=== PATIENT | female | born 1990 | race Caucasian/White ===

== ENCOUNTER 2021-09-12 18:52 | Observation (INO) ==
--- NOTE | 2021-09-12 19:42 | History & Physical Report ---
Date of Service September 12, 2021 Assessment & Plan (1) Uterine contractions at greater than 20 weeks of gestation: Plan: Contractions with pain, but at this point no cervical change from this morning. Seems that there was a notable change in the intensity and frequency of contractions in the last hour or so. Offered re-assessment in 1-2 hours, patient agreeable. History of Present Illness Chief Complaint: contractions Primary Care Provider: Briseida Fan PA-C 31yo at 40w0d presented with contractions. They began earlier today and the patient was examined in office, found to be 2/75/-2 at that time by Dr. Miller. She went home and ambulated through the day. Contractions progressed from 10 min apart, to 5 min apart, to 3 min apart at which point she decided to present to L&D for a labor check. No ROM, no VB, good FM. c/b A1GDM and maternal depression. Allergies Allergy/AdvReac Type Severity Reaction Status Date / Time No Known Allergies Allergy Verified 09/12/21 09:18 Home Medications Medication Instructions Recorded Confirmed Type prenat.vits,alexandr,mji-ttdt-valve 1 tab PO DAILY 02/08/21 09/12/21 History acetone (urine) test (Ketone Urine #50 ea 07/01/21 09/12/21 Rx Test) blood sugar diagnostic (Accu-Chek #400 ea 07/01/21 09/12/21 Rx Guide test strips) lancets (Accu-Chek Softclix #400 ea 07/01/21 09/12/21 Rx Lancets) Patient History Family History Mother Heart disease Hypertension Grandmother (Maternal) Colorectal cancer Other Breast cancer Cancer Social History Smoking Status: Never smoker Hx Alcohol Use: No Hx Substance Use: No marital status: marital status details: Shiraz (30) [phone] Current Living Situation: Spouse Current Living Situation Comment: lives with spouse and dog, current occupational status: employed 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 Feels Safe at Home: Yes Physical Exam Constitutional: WD/WN, vitals as above + in distress Eyes: PERRL, conjunctivae normal, anicteric sclerae ENMT: external ear and nose normal, oropharynx normal Neck: supple Respiratory: normal respiratory effort and able to speak in complete sentences; no respiratory distress Cardiovascular: Rate/Rhythm: regular rate and regular rhythm Extremities: + pedal edema Gastrointestinal (Abdomen): Gravid / AGA, nontender Musculoskeletal: no cyanosis or clubbing, extremities motor strength 5/5 Skin: no rashes, warm and dry Neurologic: patellar DTR's 2+ bilat, sensation intact Psychiatric: A+Ox3, euthymic affect Genitourinary: Speculum/Bimanual Exam: no vaginal lesions, no vaginal bleeding and uterus nontender OB Exam Abdomen: + vertex, + estimated weight (7) and + regular contractions (Q3) Manual OB Exam: + cervical dilation 2 cm, + cervical effacement 80%, + station -2 and + amniotic fluid (No leaking evident) OB Exam Monitor Tracing: + external FHT monitor used, + external uterine monitor used (toco Q2-3) and + category I Lymphatic: no cervical or axillary lymphadenopathy Results & Data ([facility]) Vital Signs (Past 12 Hours) Vital Signs Temp Pulse Resp BP 09/12/21 19:06 98.1 F 20 09/12/21 19:01 102 H 126/74 Coding Level of Care Code None Diagnoses Uterine contractions at greater than 20 weeks of gestation O47.9
--- NOTE | 2021-09-12 20:44 | Labor Progress Brief Note ---
Date of Service September 12, 2021 Subjective Patient still c/o contractions, no LOF, no VB, good FM. Assessment & Plan (1) Uterine contractions at greater than 20 weeks of gestation: Plan: Discussed lack of change indicates no labor yet. Offered another interval of obs vs. discharge to home; pt lives very close to hospital, feels comfortable going home for now. Labor precautions reviewed. Comfort measures discussed. Hydration encouraged, ketones present on urine dip may be contributing to nonlabor uterine contractions. FHT currently not reactive since she got back on the monitor a short time ago, so awaiting reactive NST before clearing for discharge to home. Physical Exam Genitourinary: FHT 130 mod kamlesh no acc no dec [place] Q2-5 Cvx unchanged Results & Data ([facility]) Vital Signs (Past 12 Hours) Vital Signs Temp Pulse Resp BP 09/12/21 19:06 98.1 F 20 09/12/21 19:01 102 H 126/74 Coding Level of Care Code None Diagnoses Uterine contractions at greater than 20 weeks of gestation O47.9
== END 2021-09-12 21:15 | disposition home or self-care (01) ==
LOC: OPB 18:52 → 4S1 18:52 → OPB 21:04

== ENCOUNTER 2021-09-13 01:57 | Inpatient (IN) ==
[2021-09-13] MEDS ORDERED: OXYTOCIN 30 UNITS/500 ML BAG IV PRN ×3 (02:09→15:45)
[2021-09-13] MEDS: LACTATED RINGER'S 1,000 ML IV PRN ×3 (02:38→11:11)
[2021-09-13 02:51] LABS: Hematocrit (blood only) 32.5 % (37-47); Hemoglobin 10.9 g/dL (12.0-16.0); Mean Corpuscular Hemoglobin 29.5 pg (25-34); Mean Corpuscular Hgb Conc 33.5 g/dL (32-36); Mean Corpuscular Volume 87.8 fL (80-100); Platelet Count 202 K/uL (130-400); White Blood Count 13.04 K/uL (4.8-10.8)
[2021-09-13] MEDS ORDERED: ePHEDrine sulfate 50 MG/ML AMP ONE ×2 (02:58→10:06)
[2021-09-13] MEDS ORDERED: SODIUM CHLORIDE 0.9% INJ 10 ML VIAL ONE ×2 (02:58→10:06)
[2021-09-13] MEDS ORDERED: BUPIVACAINE 0.25% 30 ML VIAL ONE ×2 (02:58→10:07)
[2021-09-13] MEDS ORDERED: fentaNYL citrate 100 MCG/2 ML VIAL ONE ×2 (02:58→10:06)
[2021-09-13] MEDS ORDERED: fentaNYL 2MCG/ML ROPIVACAINE 1.25MG/ML 100 ML BAG EPI ONE ×2 (02:59→10:07)
[2021-09-13] MEDS ORDERED: NALBUPHINE HCL INJ 10 MG/ML AMP IV PRN ×2 (03:14→08:07)
[2021-09-13] MEDS ORDERED: ePHEDrine sulfate 50 MG/ML AMP IV PRN ×2 (03:14→08:07)
[2021-09-13] MEDS ORDERED: NALOXONE HCL 0.4 MG/1 ML VIAL/CARP IV PRN ×2 (03:14→08:07)
[2021-09-13] MEDS ORDERED: diphenhydrAMINE 50 MG/ML VIAL IV PRN ×2 (03:14→08:07)
[2021-09-13] MEDS ORDERED: NALOXONE HCL 1 MG in SODIUM CHLORIDE 0.9% 1000ML 1,000 ML IV PRN ×2 (03:14→08:07)
[2021-09-13] MEDS ORDERED: fentaNYL 2MCG/ML ROPIVACAINE 1.25MG/ML 100 ML BAG EPI PRN (03:14)
--- NOTE | 2021-09-13 03:14 | Anesthesiology Consultation ---
Date of Service September 13, 2021 Assessment & Plan (1) Encounter for pre-operative examination: Chart Review Chart Review: Acceptable Risk for Surgery and Patient NOT seen in Pre Admission Testing Consults Requested none History Height/Weight Height: 5 ft 9 in Weight: 109.316 kg Allergies Allergy/AdvReac Type Severity Reaction Status Date / Time No Known Allergies Allergy Verified 09/12/21 09:18 Medications Home Medications Medication Instructions Recorded Confirmed Last Taken prenat.vits,alexandr,uhq-esfz-vzbrd 1 tab PO DAILY 02/08/21 09/13/21 09/12/21 0800 acetone (urine) test (Ketone Urine #50 ea 07/01/21 09/12/21 Unknown Test) blood sugar diagnostic (Accu-Chek #400 07/01/21 09/12/21 Unknown Guide test strips) lancets (Accu-Chek Softclix #400 07/01/21 09/12/21 Unknown Lancets) Active Medications Generic Name Dose Route Start Last Admin Trade Name Freq PRN Reason Stop Dose Admin Lactated Ringer's 1,000 mls @ 125 mls/hr 09/13/21 02:09 09/13/21 02:38 Lr IV 09/15/21 02:08 999 mls/hr .Q8H PRN Administration L&D Protocol Protocol Past Family History Family History Mother Heart disease Hypertension Grandmother (Maternal) Colorectal cancer Other Breast cancer Cancer Social History Smoking Status: Never smoker Hx Alcohol Use: No Hx Substance Use: No Physical Exam Vital Signs Last Vital Signs Temp 98.4 F 09/13/21 02:14 Pulse 80 09/13/21 03:08 Resp 20 09/13/21 02:14 BP 136/82 09/13/21 02:03 Pulse Ox 93 09/13/21 03:08 Testing Laboratory Results 09/13/21 02:42
--- NOTE | 2021-09-13 06:20 | Labor Progress Brief Note ---
Date of Service September 13, 2021 Subjective Patient returned overnight with worsened contractions and scant bloody show. Checked by RN and confirmed change to 4cm, so was admitted and offered epidural. After comfortable, re-examined by this MD. Now able to rest, feels much better. One spot on L side of upper abdomen with constant pressure, not feeling contractions come and go there; maybe feeling a part pressing towards fundus? Asked patient to notify us if this doesn't go away with change of position and AROM after this exam. RN does inform me that upon placement of the epidural, Dr. Medina mentioned that he was concerned for possible intrathecal medication because of the rapidity with which the patient felt relief. The patient was not given an on- demand BR[place]OMC[place] SORTER button and the base rate of epidural flow is set to 4. If patient develops a "hot spot" or poor pain control, will notify anesthesia promptly. Assessment & Plan (1) Normal labor: Plan: Admitted, epidural, AROM now accomplished, and discussed adding pitocin if needed to keep ctx Q2-3min; pt agreeable. Admission and Anticipated Discharge Date Admission Date: September 13, 2021 Physical Exam Genitourinary: 5/100/-1 AROM clear fluid FHT Cat 1 [place] Q2-4 Results & Data ([facility]) Vital Signs (Past 12 Hours) Vital Signs Temp Pulse Resp BP Pulse Ox 09/13/21 06:13 87 91 09/13/21 06:08 99 H 91 09/13/21 06:07 99 H 120/70 09/13/21 06:03 103 H 90 09/13/21 06:01 98.1 F 18 09/13/21 05:58 94 H 92 09/13/21 05:56 97 H 93 09/13/21 05:53 84 142/75 H 91 09/13/21 05:50 96 H 93 09/13/21 05:48 90 91 09/13/21 05:43 91 H 92 09/13/21 05:38 101 H 92 09/13/21 05:37 93 H 147/80 H 09/13/21 05:33 103 H 92 09/13/21 05:28 94 H 90 09/13/21 05:23 101 H 92 09/13/21 05:22 104 H 139/73 09/13/21 05:18 82 89 L 09/13/21 05:13 101 H 90 09/13/21 05:08 86 90 09/13/21 05:07 83 143/72 H 09/13/21 05:03 92 H 90 09/13/21 05:00 16 09/13/21 04:58 93 H 90 09/13/21 04:53 84 136/75 91 09/13/21 04:48 83 91 09/13/21 04:43 84 92 09/13/21 04:38 78 139/74 92 09/13/21 04:33 74 92 09/13/21 04:30 16 09/13/21 04:28 75 92 09/13/21 04:23 78 93 09/13/21 04:22 76 137/72 09/13/21 04:18 76 91 09/13/21 04:13 83 95 09/13/21 04:08 92 H 95 09/13/21 04:07 87 135/60 09/13/21 04:05 81 94 09/13/21 04:03 83 94 09/13/21 04:00 18 09/13/21 03:59 76 94 09/13/21 03:58 82 95 09/13/21 03:55 88 135/75 09/13/21 03:54 18 09/13/21 03:53 85 95 09/13/21 03:51 84 94 09/13/21 03:50 91 H 18 131/69 09/13/21 03:48 82 126/66 92 09/13/21 03:46 91 H 132/67 09/13/21 03:45 18 09/13/21 03:44 83 129/67 09/13/21 03:43 86 93 09/13/21 03:42 97 H 128/67 09/13/21 03:40 89 18 133/65 09/13/21 03:38 93 H 132/62 91 09/13/21 03:36 88 140/67 09/13/21 03:34 97 H 168/74 H 09/13/21 03:33 90 93 09/13/21 03:28 89 95 09/13/21 03:27 97 H 94 09/13/21 03:23 93 H 96 09/13/21 03:20 20 09/13/21 03:18 100 H 97 09/13/21 03:16 72 94 09/13/21 03:13 76 95 05/13/22 03:08 80 93 09/13/21 02:14 98.4 F 20 09/13/21 02:03 80 136/82 Coding Level of Care Code None Diagnoses Normal labor O80; Z37.9
[2021-09-13] MEDS ORDERED: NURSING L&D Epidural Breakthrough Pain Update ONE (08:04)
--- NOTE | 2021-09-13 08:13 | Communication Note ---
Date of Service: September 13, 2021 The patient was complaining of pain in her left flank. Dr. Medina communicated with me that the patient may have an intrathecal catheter. She is currently at a rate of 4 ml/hr in her catheter. She was evaluated to ice. T12 level on right. T10 level on left. She was given a bolus of 4 ml from the premixed bag about 10 minutes ago. Her catheter infusion rate was increased to 6 ml/hr with no bolus. Her vitals remain stable. She is now feeling better. She is easily moving both legs. Her vital signs remain stable.
--- NOTE | 2021-09-13 09:15 | Labor Progress Brief Note ---
Date of Service September 13, 2021 Subjective Feeling some pressure and pain w/ contractions Assessment & Plan (1) Normal labor: Plan: 31 y/o G1 at 40 w1d presents in labor VSS Fetus cat 1 Labor - pit at 7, will continue augmentation GBS neg Epidural in place, intrathecal per anesthesia Admission and Anticipated Discharge Date Admission Date: September 13, 2021 Physical Exam Genitourinary: Manual OB Exam: + cervical dilation 5 cm, + cervical effacement 90% and + station -1 OB Exam Monitor Tracing: + external FHT monitor used, + external uterine monitor used (q3) and + category I (120/mod/+accel/-decel) Results & Data ([facility]) Vital Signs (Past 12 Hours) Vital Signs Temp Pulse Resp BP Pulse Ox 09/13/21 09:08 96 H 89 L 09/13/21 09:05 107 H 113/59 L 09/13/21 09:04 98 H 94 09/13/21 09:03 98 H 95 09/13/21 08:58 94 H 95 09/13/21 08:53 94 H 98 09/13/21 08:52 81 94 09/13/21 08:50 95 H 116/63 09/13/21 08:48 82 96 09/13/21 08:46 82 94 09/13/21 08:43 81 93 09/13/21 08:38 88 93 09/13/21 08:36 86 122/57 L 09/13/21 08:33 83 93 09/13/21 08:32 84 94 09/13/21 08:28 97 H 92 09/13/21 08:23 107 H 95 09/13/21 08:20 98.1 F 100 H 16 135/71 09/13/21 08:18 95 H 93 09/13/21 08:17 92 H 94 09/13/21 08:14 104 H 127/68 09/13/21 08:13 103 H 94 09/13/21 08:12 95 H 94 09/13/21 08:10 95 H 134/69 09/13/21 08:08 97 H 93 09/13/21 08:07 89 135/70 09/13/21 08:03 100 H 93 09/13/21 08:02 113 H 94 09/13/21 07:59 105 H 18 143/73 H 09/13/21 07:58 104 H 93 09/13/21 07:54 91 H 94 09/13/21 07:53 96 H 90 09/13/21 07:49 94 H 93 09/13/21 07:48 91 H 94 09/13/21 07:43 89 92 09/13/21 07:38 100 H 91 09/13/21 07:37 89 131/88 09/13/21 07:33 99 H 91 09/13/21 07:28 96 H 90 09/13/21 07:23 87 91 09/13/21 07:22 93 H 151/82 H 09/13/21 07:21 90 92 09/13/21 07:18 91 H 91 09/13/21 07:15 99.1 F 18 09/13/21 07:13 89 91 09/13/21 07:08 96 H 91 09/13/21 07:07 100 H 135/78 09/13/21 07:03 101 H 92 09/13/21 06:58 96 H 90 09/13/21 06:53 88 138/80 90 09/13/21 06:48 86 90 09/13/21 06:43 86 90 09/13/21 06:38 86 92 09/13/21 06:37 82 148/71 H 09/13/21 06:33 90 91 09/13/21 06:28 93 H 90 09/13/21 06:23 94 H 91 09/13/21 06:18 87 92 09/13/21 06:13 87 91 09/13/21 06:08 99 H 91 09/13/21 06:07 99 H 120/70 09/13/21 06:03 103 H 90 09/13/21 06:01 98.1 F 18 09/13/21 05:58 94 H 92 09/13/21 05:56 97 H 93 09/13/21 05:53 84 142/75 H 91 09/13/21 05:50 96 H 93 09/13/21 05:48 90 91 09/13/21 05:43 91 H 92 09/13/21 05:38 101 H 92 09/13/21 05:37 93 H 147/80 H 09/13/21 05:33 103 H 92 09/13/21 05:28 94 H 90 09/13/21 05:23 101 H 92 09/13/21 05:22 104 H 139/73 09/13/21 05:18 82 89 L 09/13/21 05:13 101 H 90 09/13/21 05:08 86 90 09/13/21 05:07 83 143/72 H 09/13/21 05:03 92 H 90 09/13/21 05:00 16 09/13/21 04:58 93 H 90 09/13/21 04:53 84 136/75 91 09/13/21 04:48 83 91 09/13/21 04:43 84 92 09/13/21 04:38 78 139/74 92 09/13/21 04:33 74 92 09/13/21 04:30 16 09/13/21 04:28 75 92 09/13/21 04:23 78 93 09/13/21 04:22 76 137/72 09/13/21 04:18 76 91 09/13/21 04:13 83 95 09/13/21 04:08 92 H 95 09/13/21 04:07 87 135/60 09/13/21 04:05 81 94 09/13/21 04:03 83 94 09/13/21 04:00 18 09/13/21 03:59 76 94 09/13/21 03:58 82 95 09/13/21 03:55 88 135/75 09/13/21 03:54 18 09/13/21 03:53 85 95 09/13/21 03:51 84 94 09/13/21 03:50 91 H 18 131/69 09/13/21 03:48 82 126/66 92 09/13/21 03:46 91 H 132/67 09/13/21 03:45 18 09/13/21 03:44 83 129/67 09/13/21 03:43 86 93 09/13/21 03:42 97 H 128/67 09/13/21 03:40 89 18 133/65 09/13/21 03:38 93 H 132/62 91 05 03:36 88 140/67 09/13/21 03:34 97 H 168/74 H 09/13/21 03:33 90 93 09/13/21 03:28 89 95 09/13/21 03:27 97 H 94 09/13/21 03:23 93 H 96 09/13/21 03:20 20 09/13/21 03:18 100 H 97 09/13/21 03:16 72 94 09/13/21 03:13 76 95 09/13/21 03:08 80 93 09/13/21 02:14 98.4 F 20 09/13/21 02:03 80 136/82 Coding Level of Care Code None Diagnoses Normal labor O80; Z37.9
--- NOTE | 2021-09-13 11:00 | Labor Progress Brief Note ---
Date of Service September 13, 2021 Subjective pt comfortable. Assessment & Plan (1) Normal labor: (2) Gestational diabetes mellitus (GDM) affecting , antepartum: (3) Supervision of normal intrauterine in primigravida: Plan: pt aware i am assuming care. comfortable right now. fhts categ 1. Admission and Anticipated Discharge Date Admission Date: September 13, 2021 Physical Exam Genitourinary: Manual OB Exam: + cervical dilation 5 cm (per dr mera) OB Exam Monitor Tracing: + external FHT monitor used, + external uterine monitor used (q2), + category I and + normal FHT variability Results & Data ([facility]) Vital Signs (Past 12 Hours) Vital Signs Temp Pulse Resp BP Pulse Ox 09/13/21 10:54 95 H 92 09/13/21 10:50 98 H 127/62 09/13/21 10:49 111 H 96 09/13/21 10:47 100 H 127/65 09/13/21 10:44 95 H 96 09/13/21 10:43 106 H 94 09/13/21 10:39 95 H 95 09/13/21 10:38 95 H 94 09/13/21 10:37 96 H 127/65 09/13/21 10:34 105 H 95 09/13/21 10:33 125 H 158/83 H 09/13/21 10:29 95 H 95 09/13/21 10:27 114 H 94 09/13/21 10:24 113 H 96 09/13/21 10:22 113 H 94 09/13/21 10:20 111 H 120/69 09/13/21 10:19 110 H 96 09/13/21 10:14 100 H 94 09/13/21 10:11 101 H 94 09/13/21 10:09 96 H 96 09/13/21 10:06 96 H 131/84 09/13/21 10:05 107 H 94 09/13/21 10:04 104 H 95 09/13/21 09:59 97 H 95 09/13/21 09:58 100 H 94 09/13/21 09:54 97 H 97 09/13/21 09:53 98 H 94 09/13/21 09:52 94 H 154/81 H 09/13/21 09:50 92 H 136/107 H 09/13/21 09:49 90 95 09/13/21 09:48 90 89 L 09/13/21 09:44 95 H 94 09/13/21 09:42 102 H 94 09/13/21 09:38 91 H 96 09/13/21 09:37 97 H 92 09/13/21 09:36 84 133/78 09/13/21 09:33 85 95 09/13/21 09:32 83 94 09/13/21 09:28 96 H 96 09/13/21 09:23 99 H 93 09/13/21 09:21 94 H 139/76 09/13/21 09:18 91 H 96 09/13/21 09:17 98.2 F 18 09/13/21 09:13 114 H 94 09/13/21 09:08 96 H 89 L 09/13/21 09:05 107 H 113/59 L 09/13/21 09:04 98 H 94 09/13/21 09:03 98 H 95 09/13/21 08:58 94 H 95 09/13/21 08:53 94 H 98 09/13/21 08:52 81 94 09/13/21 08:50 95 H 116/63 09/13/21 08:48 82 96 09/13/21 08:46 82 94 09/13/21 08:43 81 93 09/13/21 08:38 88 93 09/13/21 08:36 86 122/57 L 09/13/21 08:33 83 93 09/13/21 08:32 84 94 09/13/21 08:28 97 H 92 09/13/21 08:23 107 H 95 09/13/21 08:20 98.1 F 100 H 16 135/71 09/13/21 08:18 95 H 93 09/13/21 08:17 92 H 94 09/13/21 08:14 104 H 127/68 09/13/21 08:13 103 H 94 09/13/21 08:12 95 H 94 09/13/21 08:10 95 H 134/69 09/13/21 08:08 97 H 93 09/13/21 08:07 89 135/70 09/13/21 08:03 100 H 93 09/13/21 08:02 113 H 94 09/13/21 07:59 105 H 18 143/73 H 09/13/21 07:58 104 H 93 05/13/22 07:54 91 H 94 09/13/21 07:53 96 H 90 09/13/21 07:49 94 H 93 09/13/21 07:48 91 H 94 09/13/21 07:43 89 92 09/13/21 07:38 100 H 91 09/13/21 07:37 89 131/88 09/13/21 07:33 99 H 91 09/13/21 07:28 96 H 90 09/13/21 07:23 87 91 09/13/21 07:22 93 H 151/82 H 09/13/21 07:21 90 92 09/13/21 07:18 91 H 91 09/13/21 07:15 99.1 F 18 09/13/21 07:13 89 91 09/13/21 07:08 96 H 91 09/13/21 07:07 100 H 135/78 09/13/21 07:03 101 H 92 09/13/21 06:58 96 H 90 09/13/21 06:53 88 138/80 90 09/13/21 06:48 86 90 09/13/21 06:43 86 90 09/13/21 06:38 86 92 09/13/21 06:37 82 148/71 H 09/13/21 06:33 90 91 09/13/21 06:28 93 H 90 09/13/21 06:23 94 H 91 09/13/21 06:18 87 92 09/13/21 06:13 87 91 09/13/21 06:08 99 H 91 09/13/21 06:07 99 H 120/70 09/13/21 06:03 103 H 90 09/13/21 06:01 98.1 F 18 09/13/21 05:58 94 H 92 09/13/21 05:56 97 H 93 09/13/21 05:53 84 142/75 H 91 09/13/21 05:50 96 H 93 09/13/21 05:48 90 91 09/13/21 05:43 91 H 92 09/13/21 05:38 101 H 92 09/13/21 05:37 93 H 147/80 H 09/13/21 05:33 103 H 92 09/13/21 05:28 94 H 90 09/13/21 05:23 101 H 92 09/13/21 05:22 104 H 139/73 09/13/21 05:18 82 89 L 09/13/21 05:13 101 H 90 09/13/21 05:08 86 90 09/13/21 05:07 83 143/72 H 09/13/21 05:03 92 H 90 09/13/21 05:00 16 09/13/21 04:58 93 H 90 09/13/21 04:53 84 136/75 91 09/13/21 04:48 83 91 09/13/21 04:43 84 92 09/13/21 04:38 78 139/74 92 09/13/21 04:33 74 92 09/13/21 04:30 16 09/13/21 04:28 75 92 09/13/21 04:23 78 93 09/13/21 04:22 76 137/72 09/13/21 04:18 76 91 09/13/21 04:13 83 95 09/13/21 04:08 92 H 95 09/13/21 04:07 87 135/60 09/13/21 04:05 81 94 09/13/21 04:03 83 94 09/13/21 04:00 18 09/13/21 03:59 76 94 09/13/21 03:58 82 95 09/13/21 03:55 88 135/75 09/13/21 03:54 18 09/13/21 03:53 85 95 09/13/21 03:51 84 94 09/13/21 03:50 91 H 18 131/69 09/13/21 03:48 82 126/66 92 09/13/21 03:46 91 H 132/67 09/13/21 03:45 18 09/13/21 03:44 83 129/67 09/13/21 03:43 86 93 09/13/21 03:42 97 H 128/67 09/13/21 03:40 89 18 133/65 09/13/21 03:38 93 H 132/62 91 05 03:36 88 140/67 09/13/21 03:34 97 H 168/74 H 09/13/21 03:33 90 93 09/13/21 03:28 89 95 09/13/21 03:27 97 H 94 09/13/21 03:23 93 H 96 09/13/21 03:20 20 09/13/21 03:18 100 H 97 09/13/21 03:16 72 94 09/13/21 03:13 76 95 09/13/21 03:08 80 93 09/13/21 02:14 98.4 F 20 09/13/21 02:03 80 136/82 Coding Level of Care Code None Diagnoses Normal labor O80; Z37.9 Gestational diabetes mellitus (GDM) affecting , antepartum O24.419 Supervision of normal intrauterine in primigravida Z34.00
--- NOTE | 2021-09-13 15:41 | Delivery Summary ---
Vaginal Delivery Summary Date of Service September 13, 2021 Vaginal Delivery Summary and 2nd Degree LAC The patient dilated to complete and pushed to deliver a viable male infant Apgars 8 and 9 via over 2nd degree perineal laceration. Mouth and nose bulb suctioned at perineum. Shoulders and body delivered with ease. Infant was vigorous and crying at . Cord clamped at 30 seconds of life and to maternal abdomen where the cord was then doubly clamped and cut. Placenta delivered spontaneously and intact, three-vessel cord. True knot of cord noted. Hemostasis achieved with dilute pitocin and uterine massage and drainage of the bladder for approximately 250 cc under sterile conditions. Laceration repaired in layers in usual fashion with 3-0 vicryl. Cervix and sulci intact. EBL 300 cc. Mother and baby stable recovery[place] [facility] [place] Charge Delivery Type Details: and 2nd Degree LAC
[2021-09-13] MEDS ORDERED: OXYTOCIN 20 UNITS in LACTATED RINGER'S 1,000 ML IV SCH (15:45)
[2021-09-13] MEDS ORDERED: DIPHTHERIA/TETANUS/PERTUSSIS 0.5 ML SYR/VIAL IM ONE (15:45)
[2021-09-13] MEDS ORDERED: BENZOCAINE 20% AER SPR 82.5 GM CAN EXT PRN (15:45)
[2021-09-13] MEDS ORDERED: HYDROCORTISONE ACETATE 25 MG SUPP PR PRN (15:45)
[2021-09-13] MEDS ORDERED: oxyCODONE/ACETAMINOPHEN 5mg/325mg TAB PO PRN (15:45)
[2021-09-13] MEDS: ACETAMINOPHEN 325 MG TAB PO PRN (15:59)
[2021-09-13] MEDS: IBUPROFEN 600 MG TAB PO PRN ×2 (16:29→21:05)
--- NOTE | 2021-09-13 17:39 | Anesthesia Procedure Note ---
Date of Service September 13, 2021 Anesthesia Post Epidural Note Vital Signs Vital Signs: Temp Pulse Resp BP Pulse Ox 36.7 C 88 20 133/73 94 09/13/21 14:05 09/13/21 17:06 09/13/21 16:45 09/13/21 17:06 09/13/21 16:53 Pain Intensity Perineal: Pain Intensity: 1 Notes Mental Status: alert / awake / arousable and participated in evaluation Nausea / Vomiting: adequately controlled Pain: adequately controlled Airway Patency, RR, SpO2: stable & adequate BP & HR: stable & adequate Hydration State: stable & adequate Neuraxial Anesthesia: was administered and sensory block is resolving Anesthetic Complications: no major complications apparent and Pt Satisfied with anesthetic care Epidural: Removed without complications and With tip intact
[2021-09-13] MEDS: DOCUSATE SODIUM 100 MG CAP PO SCH (21:05)
[2021-09-14] MEDS: ACETAMINOPHEN 325 MG TAB PO PRN ×2 (03:35→20:13)
--- NOTE | 2021-09-14 06:29 | Obstetrical Progress Note ---
Date of Service <Eric Rosario DO - Last Filed: 09/14/21 07:58> September 14, 2021 Assessment & Plan <Eric Rosario DO - Last Filed: 09/14/21 07:58> (1) Encounter for care and examination after delivery: 31 yo post day 1 from vaginal delivery, doing well. -Continue routine post care. -vital signs reviewed and WNL. (Tmax 36.8) -Blood type O+, GBS Negative, Rubella Immune -Encourage ambulation, monitor and control pain with Motrin, tylenol PRN, resume regular diet, monitor lochia. -Offered PRN Percocet for headache. -encourage breast feeding. <Simona Miller MD, FACOG - Last Filed: 09/14/21 08:14> (1) Encounter for care and examination after delivery: Day #:: 1 Subjective <Eric Rosario DO - Last Filed: 09/14/21 07:58> Ambulation: ambulating normally Voiding: no voiding problems Passing Gas:: Yes Diet Tolerance:: regular diet Lochia:: Small Feeding Type:: breast feeding Current Pain Level(1-10): 0 Patient has headache worse with laying flat, better with sitting up. Review of Systems Denies fever, chills, sweats Denies shortness of breath, difficulty breathing, chest pain, palpitations, chest pressure. Denies breast pain. Denies dysuria. Denies changes in vision +Headache Physical Exam <Eric Rosario DO - Last Filed: 09/14/21 07:58> General: Alert, oriented. No acute distress. Cardiac: Regular rate and rhythm, no murmurs/rubs/gallops. Respiratory: Clear to auscultation bilaterally a/p, no wheezes/rales/rhonchi. No increased work of breathing. Symmetrical chest rise. No respiratory distress. Abdomen: Soft, nontender, nondistended. Bowel sounds present. Uterus: Uterine fundus firm, palpable 2 cm below umbilicus. Lower Extremities: No lower extremity edema or swelling. No deep calf pain. Jony's negative bilaterally Results & Data ([facility]) <Eric Rosario DO - Last Filed: 09/14/21 07:58> Vital Signs (Past 12 Hours) Vital Signs Temp Pulse Resp BP Pulse Ox 09/14/21 03:30 36.7 C 91 H 16 116/67 09/13/21 23:20 36.7 C 90 16 127/74 09/13/21 19:10 36.8 C 87 16 128/75 98 <Simona Miller MD, FACOG - Last Filed: 09/14/21 08:14> Co-Signing Physician Notes Resident Physician Supervision Note: I was present with Dr. Rosario during the history and exam. I discussed the case with the resident and agree with the findings and plan as documented in the note. Any exceptions or clarifications are listed here: doing well, has mike, advised to try percocet, fluids, caffeine. does not seem like spinal mike due to not better with laying flat. routine care. /rhpos/ri. Documented By: Simona Miller MD, FACOG Resident Activity Tracking <Eric Rosario DO - Last Filed: 09/14/21 07:58> Resident Involvement: Resident Care Provided Care Provided: OB Delivery
[2021-09-14] MEDS: IBUPROFEN 600 MG TAB PO PRN ×2 (07:41→15:53)
[2021-09-14] MEDS: PRENATAL VITAMIN 1 TAB PO SCH (08:39)
[2021-09-14] MEDS: DOCUSATE SODIUM 100 MG CAP PO SCH ×2 (08:39→20:13)
[2021-09-14] MEDS ORDERED: ONDANSETRON INJ 2 MG/ML 2 ML VIAL IV PRN (18:23)
[2021-09-14] MEDS: ONDANSETRON 4 MG OD TAB PO PRN (18:53)
[2021-09-15] MEDS: ACETAMINOPHEN 325 MG TAB PO PRN ×2 (03:06→08:41)
[2021-09-15] MEDS: IBUPROFEN 600 MG TAB PO PRN ×3 (04:17→12:19)
--- NOTE | 2021-09-15 04:38 | Communication Note ---
Date of Service: September 15, 2021 Nursing called me due to concerns for pt's HUYNH. Pt has had HUYNH issues throughout the day, since round yesterday morning. Does have hx of migraines that was treated w/ ibuprofen and excedrin prior to . Got percocet w/o relief, few hours ago got tylenol alone and felt much better. Slept for a few hours and then woke up with a worsened headache in the shape of a crown on her head. Worsened with laying down, better with sitting up. Initially said vision was blurry with it but this improved with putting her glasses on and turning l ights on. BP is normal, denies any other s/s PET. Notes that her upper shoulders are very tight, thinks heat did help a bit earlier. During this whole conversation, pt is able to breastfeed and appears to be sitting comfortably. Actually declined nursing to take the baby if she was not feeling well. Did get up to go to bathroom in b/w evaluations and did not have any lightheadedness/dizziness, near syncope, weakness or sensory deficits. Discussed w/ anesthesia and they agree does not sound like spinal HUYNH as does not improve with laying down. They do note she had severe tightening of upper body during labor course and replacement of epidural yesterday. Notes some throbbing but no light sensitivity. Denies n/v. Gave ibuprofen and pt did start noticing some relief shortly after, just gave heat packs as well. I believe this is some combination of tension headache/migraine in combination w/ lack of sleep and dehydration given improvements w/ medication so do not think head imaging indicated at this time. If it does worsen again, would consider it but suspect may just need time. Recommended pt lay w/ pillows so that neck is not overly flexed or extended. All of this was reviewed w/ pt and her as well w/ nursing in the room and pt agrees and is reassured.
--- NOTE | 2021-09-15 07:27 | Obstetrical Progress Note ---
Date of Service September 15, 2021 Assessment & Plan (1) Encounter for care and examination after delivery: 31 yo PP2 from , doing well -Meeting all pp milestones -A+/rubella immune/ -f/u 6 weeks for appt, stable for d/c home today Subjective Ambulation: ambulating normally Voiding: no voiding problems Passing Gas:: Yes Diet Tolerance:: regular diet Lochia:: Small Feeding Type:: breast feeding Pain well managed with medication. HUYNH very much improved following ibuprofen, heat packs, and some sleep. Had previously rated HUYNH as 9, currently a 1 Review of Systems Denies fevers, chills, n/v, CP, SOB Physical Exam Constitutional WD/WN, vitals as above no acute distress Respiratory normal respiratory effort, lungs clear to auscultation Cardiovascular RRR, no murmur, no edema Gastrointestinal (Abdomen) Percussion/Palpation: abdomen soft; abdomen nontender fundus firm at umbilicus and NT Musculoskeletal BLE symmetric, nonerythematous, nontender Results & Data ([facility]) Vital Signs (Past 12 Hours) Vital Signs Temp Pulse Resp BP Pulse Ox 09/15/21 04:10 97.7 F 78 20 129/83 100 09/14/21 23:45 97.9 F 82 18 122/73 98 09/14/21 20:00 98.2 F 86 18 136/76 98
[2021-09-15] MEDS: PRENATAL VITAMIN 1 TAB PO SCH (08:40)
[2021-09-15] MEDS: DOCUSATE SODIUM 100 MG CAP PO SCH (08:40)
[2021-09-15] MEDS: ONDANSETRON 4 MG OD TAB PO PRN (08:54)
--- NOTE | 2021-09-17 15:35 | Communication Note ---
Anesthesia note/Dr. Medina (09/13/21 [id number]): "After placement of catheter and during repositioning to supine position patient noted slight weakness/numbness to both lower extremities. Neurological exam showed decreased strength 2/5 B/L lower extremities, vitals stable.Concern for potential intrathecal catheter. Bolus dose not given, pump settings decreased to rate of 4 without PCEA dose, will adjust as necessary. Informed nursing staff of potential intrathecal placement, catheter labeled intrathecal. Upon recheck 30 minutes after placement patient is comfortable with no complaints, vitals stable, FHR reasuring." Anesthesia communication note/Dr. Cristhian Jordan (09/13/21 [id number]): "The patient was complaining of pain in her left flank. Dr. Medina communicated with me that the patient may have an intrathecal catheter. She is currently at a rate of 4 ml/hr in her catheter. She was evaluated to ice. T12 level on right. T10 level on left. She was given a bolus of 4 ml from the premixed bag about 10 minutes ago. Her catheter infusion rate was increased to 6 ml/hr with no bolus. Her vitals remain stable. She is now feeling better. She is easily moving both legs. Her vital signs remain stable." Anesthesia note/Dr. Cristhian Jordan (09/13/21 [id number]): "Dr. Medina had concerns that the patient's epidural catheter was in the intrathecal space. She had been having pain and was given a bolus once by me. The patient continues to have pain. It is possible that the catheter is in the subdural space. The catheter will be removed and the patient will have a new CSE placed by me." Spoke with patient 09/17/21. She states that since labor (after CSE), she has had progressive worsening of headache, neck and upper back pain. Initially felt pain relieved when sitting up and now progressing sitting up/laying down. Pain has NEVER been improved/relieved with laying down* Patient spoke with Dr. Kuhn personally. Symptoms are not classic for spinal headache. Patient decided she will monitor symptoms and attend appointment OB tomorrow at 1300. Radha at OB made aware and OB will contact us tomorrow if anything further needed.
--- NOTE | 2021-09-18 16:44 | History & Physical Report ---
Date of Service September 18, 2021 Assessment & Plan (1) Post-dural puncture headache: Plan: i suspect that she had a multifactorial headache post delivery, of which a portion was due to dural puncture. At this point, it appears most of her remaining symptoms are primarily due to post dural puncture headache. i explained the etiology of this conditions, and presented invasive versus non invasive management options for treatment. after discussing the risks and benefits, the patient and her had a chance to ask any questions and would like to proceed with epidural blood patch on an outpatient basis. Admission and Anticipated Discharge Date Admission Date: September 13, 2021 Anticipated date of discharge: 09/13/21 History of Present Illness Chief Complaint: headache Primary Care Provider: Briseida Fan PA-C patient had delivery of on Wednesday 09/13. Delivery was complicated by a difficult epidural placement, which was repeated for adequate analgesia x1. since delivery she has had a headache and neck pain which was initially non positional, but has progressed to becoming very positional with worsening upon standing. she has no symptoms in the legs, bowel or bladder dysfunction, saddle anesthesia, fevers. it is difficult to care for her with this headache, which has not significantly improved since delivery. review of records shows that there was concern for possible subdural placement of the first epidural catheter. Allergies Allergy/AdvReac Type Severity Reaction Status Date / Time No Known Allergies Allergy Verified 09/18/21 15:58 Home Medications Medication Instructions Recorded Confirmed Type prenat.vits,alexandr,kpk-[id number]-mowmb 1 tab PO DAILY 02/08/21 09/18/21 History acetaminophen 325 mg tablet 650 mg PO Q6H PRN #0 tab 09/14/21 09/18/21 Rx ibuprofen 600 mg tablet 600 mg PO Q4H PRN #0 tab 09/14/21 09/18/21 Rx ondansetron 4 mg disintegrating 4 mg PO Q6H PRN #20 tab 09/15/21 09/18/21 Rx tablet Past Med/Surg History Medical History (Updated 09/18/21 @ 16:38 by Devyn Dockery MD) History of migraine History of vaginal delivery Surgical History (Updated 09/18/21 @ 16:01 by Tsering Fernández RN) No history of previous surgery Family History Mother Heart disease Hypertension Grandmother (Maternal) Colorectal cancer Other Breast cancer Cancer Social History Smoking Status: Never smoker Hx Alcohol Use: Yes Hx Substance Use: No Preferred Language: Khmer Communication Ability: Effective Wellness Director Required: No Beliefs That Will Affect Care: None marital status: marital status details: Shiraz (30) [phone] Current Living Situation: Spouse Current Living Situation Comment: lives with spouse and dog, current occupational status: employed 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 Other Information That Helps Us Care for You: No Feels Safe at Home: Yes Safety Concerns: Feels Safe At This Time Assistive Devices: None Review of Systems Review of Systems: All systems reviewed & are unremarkable except as noted in HPI & below Physical Exam Constitutional: WD/WN, vitals as above well developed and well nourished Neck: normal visual inspection Respiratory: normal respiratory effort, lungs clear to auscultation Cardiovascular: RRR, no murmur, no edema Musculoskeletal: no cyanosis or clubbing, extremities motor strength 5/5 Neurologic: normal touch/pain/proprioception Psychiatric: A+Ox3, euthymic affect Code Status & VTE Plan VTE Prophylaxis Plan VTE Prophylaxis will be ordered: No
--- NOTE | 2021-09-18 16:48 | Anesthesia Procedure Note ---
Anesthesia Procedure Note Epidural Blood Patch Procedure Note Date of procedure: 09/13/21 Consent: Risk / Benefits Reviewed With: PT / POA / Parent / Guardian Risks include: Failure of technique, Back pain, Infection, Bleeding, Nerve injury and Dural puncture Time out completed: Yes Premedication: None Position: Sitting Surgical Prep: Hand hygeine: Soap and water and Alcohol based hand rub Equipment/Supplies: Cap, Mask, Sterile gloves, Sterile drapes and Sterile procedures used Skin prep: Chloraprep (for blood draw) and Betadine (for epidural placement) Local medication: 2% Lidocaine (ml) Site: Midline Attempts: 1 Procedure Summary: lumbar spine prepped, draped, and localized. epidural space entered easily at a depth of 5cm @ L3/4. Left arm prepped and draped. 20cc of blood drawn from left wrist in a sterile fashion. 20cc of blood injected without difficulty in to the epidural space. Patient noted some local pressure during injection. She was instructed to lay flat for 1hr after the procedure. Post-Procedure: Pt hemodynamically stable Anesthesia Charges Indication for Procedure (1) Post-dural puncture headache:
== END 2021-09-15 12:45 | disposition home or self-care (01) | DRG 807 ==
LOC: OPB 01:57 → 4S1 02:02 → 4E2 18:00
DX: O24.429 Gestational diabetes mellitus in childbirth, unspecified control; O70.1 Second degree perineal laceration during delivery; Z3A.40 40 weeks gestation of pregnancy; Z37.0 Single live birth

== ENCOUNTER 2023-04-03 07:37 | Inpatient (IN) ==
--- NOTE | 2023-04-03 07:43 | History & Physical Report ---
Date of Service April 03, 2023 Assessment & Plan (1) Encounter for induction of labor: Plan 33 y/o female currently at 40 3/7 WGA with an RIP 03/31/2023 as determined by ultrasound, who is here for IOL. Pitocin AROM when indicated Monitor heart tracing, category 1 Rh positive GBS negative Admission and Anticipated Discharge Date Admission Date: April 03, 2023 History of Present Illness Primary Care Provider: Briseida Fan PA-C 33 y/o female currently at 40 3/7 WGA with an RIP 03/31/2023 as determined by ultrasound, who is here for IOL. Had regular appointments with OB denies Contractions + movement denies Fluid loss denies Vaginal bleeding External FHT and external uterine monitors used: Category 1 tracing OB Labs: Blood Type A Positive 09/09/22 Antibody Screen NEGATIVE 09/09/22 Hemoglobin 12.0 g/dl (12.0-16.0) 01/08/23 Hematocrit 35.4 % (37.0-47.0) L 01/08/23 Mean Corpuscular Volume 87.3 fL (80.0-100.0) 09/09/22 Platelet Count 274 K/uL (130-400) 09/09/22 Rubella IgG Antibody Immune (Immune) 09/09/22 Rapid Plasma Reagin Nonreactive (Nonreactive) 09/09/22 Hepatitis B Surface Antigen Neg (Neg) 02/14/21 Hepatitis B Surface Antigen. NON-REACTIVE (NON-REACTIVE) 09/09/22 Hepatitis C Antibody (EIA) NON-REACTIVE (NON-REACTIVE) 09/09/22 HIV (1&2) Ab and P24 Ag, 4th Gener Neg (Neg) 02/14/21 HIV (1&2) Ag and Ab Confirmation NON-REACTIVE (NON-REACTIVE) 09/09/22 Glucose 1 Hour 50 gm Load 136 mg/dl (70-130) H 04/05/21 Maternal Serum Alpha Fetoprotein 30.5 ng/mL 10/27/22 OB Optional Labs: Chlamydia trachomatis RNA Not Detected (NotDetected) 09/09/22 Neisseria gonorrhoeae RNA Not Detected (NotDetected) 09/09/22 Alpha Fetoprotein Triple Screen SEE NOTE 10/27/22 Labs Reviewed: FOB neg cf/sma previous preg.-polly Horizon 14-negative--mln cfdna-low risk--mln Allergies Allergy/AdvReac Type Severity Reaction Status Date / Time No Known Allergies Allergy Verified 04/02/23 11:46 Home Medications Medication Instructions Recorded Confirmed Type prenat.vits,alexandr,mxl-lydf-xwcjx 1 tab PO DAILY 02/08/21 04/03/23 History Accu-Chek Guide Glucose Meter #1 ea 09/24/22 04/02/23 Rx (blood-glucose meter) Accu-Chek Guide test strips (blood #200 ea 09/24/22 04/02/23 Rx sugar diagnostic) acetone (urine) test (Ketone Urine #50 ea 09/24/22 04/02/23 Rx Test strips) lancets (Accu-Chek Fastclix Lancet #200 ea 09/24/22 04/02/23 Rx Drum) azithromycin 250 mg tablet 250 mg PO DAILY 04/03/23 04/03/23 History Patient History Medical History Depression History of vaginal delivery History of migraine Encounter for care and examination after delivery Normal labor Encounter for pre-operative examination Gestational diabetes mellitus (GDM) affecting , antepartum Encounter for anatomic survey Supervision of normal intrauterine in primigravida Surgical History S/P wisdom tooth extraction No history of previous surgery Family History (Updated 09/01/22 @ 11:10 by Zaira Tai RN) Mother Heart disease Hypertension Grandmother (Maternal) Colorectal cancer Pancreatic cancer Other Breast cancer Cancer Denies family history of Ovarian cancer Social History (Updated 09/01/22 @ 11:10 by Zaira Tai RN) Smoking Status: Never smoker Do You Dip or Chew Tobacco: No; Hx Alcohol Use: Yes Hx Substance Use: No Preferred Language: Danish Communication Ability: Effective Squash Centre Manager Required: No Beliefs That Will Affect Care: None marital status: marital status details: Shiraz (30) [phone] Current Living Situation: Spouse Current Living Situation Comment: lives with spouse, son and 3 dog, current occupational status: employed 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 No acute distress Cardiac: mildly tachycardic but with regular rhythm, no murmurs appreciated Respiratory: Lungs clear to auscultation bilaterally, No increased work of breathing Abdominal: Soft, non-tender, non-distended. Bowel sounds present. Gravid uterus. Extremities: No lower extremity edema, calves non-tender bilaterally Supervising Physician Co-Signing Physician Notes Resident Physician Supervision Note: I interviewed and examined the patient. Discussed with Dr. Hernandez and agree with findings and plan as documented in the note. Any exceptions or clarifications are listed here: 33yo at 40+wks ega presents to L&D for planned induction. prior macrosomia delivered via 10#+. c/b GDM, diet controlled. denies rom, vb. +FM. no ctx. abd soft gravid nt, efw 9-10#. ext nt calves, no e ko. cor rrr, lungs ctab. SVE in office 3/thick/high/post/med fhts categ 1, toco no regular ctx. plan pitocin and then arom once able. epidural when desires. check bsg now and q 2hr in active phase. fhts categ 1. initial bp was elevated, labs ordered with lfts. denies huynh or visual change. had ruq pain last pm but resolved. no history of prior gest htn or preeclampsia. Documented By: Simona Miller MD, FACOG Resident Activity Tracking Resident Involvement: Resident Care Provided Care Provided: OB Delivery
[2023-04-03] MEDS ORDERED: OXYTOCIN 30 UNITS/NSS 30 UNITS/500 ML BAG IV PRN ×3 (08:23→14:35)
[2023-04-03] MEDS ORDERED: LIDOCAINE 1% LOCAL 20 ML VIAL INFIL PRN (08:23)
[2023-04-03 08:54] LABS: Hematocrit (blood only) 36.4 % (37.0-47.0); Hemoglobin 12.5 g/dl (12.0-16.0); Mean Corpuscular Hemoglobin 31.3 pg (25.0-34.0); Mean Corpuscular Hgb Conc 34.3 g/dL (32.0-36.0); Mean Platelet Volume 9.7 fL (9.4-12.4); Platelet Count 223 K/uL (130-400); RDW Coefficient of Variation 12.9 % (11.5-14.5); RDW Standard Deviation 42.7 fL (36.4-46.3); White Blood Count 9.99 K/ul (4.8-10.8)
[2023-04-03] MEDS: LACTATED RINGER'S 1,000 ML IV PRN ×2 (09:03→12:08)
[2023-04-03 09:14] LABS: Albumin Globulin Ratio 1.1 (0.9-2); Albumin Level 3.2 gm/dl (3.4-5.0); BUN Creatinine Ratio 13.8 (10-20); Bilirubin,Total 0.4 mg/dl (0.2-1.0); Calcium 8.7 mg/dl (8.6-10.3); Creatinine Clr Calc Pharmacy 182.1 ml/min; Est GFR (African American) 140.4 ml/min; Est GFR (Non-African American) 121.1 ml/min; Potassium 3.9 mmol/L (3.5-5.1); Total Protein 6.2 gm/dl (6.0-8.3)
--- NOTE | 2023-04-03 10:59 | Labor Progress Brief Note ---
Date of Service April 03, 2023 Subjective feels contractions but not painful. ok with arom. Assessment & Plan (1) Encounter for induction of labor: (2) Gestational diabetes mellitus (GDM) affecting , antepartum: Plan doing well. pit infusing, arom done and will see if helps labor pattern. fhts categ 1. epidural when she desires. bps have been normal. labs reviewed. Admission and Anticipated Discharge Date Admission Date: April 03, 2023 Physical Exam Constitutional: WD/WN, vitals as above Genitourinary: Manual OB Exam: + cervical dilation (4-5 cm), + cervical effacement 50%, + station -2 and + amniotic fluid (AROM) clear OB Exam Monitor Tracing: + external FHT monitor used, + external uterine monitor used (q2-3 pit at 5), + category I and + normal FHT variability Results & Data Vital Signs (Past 12 Hours) Vital Signs Temp Pulse Resp BP 04/03/23 10:31 82 04/03/23 10:31 119/69 04/03/23 09:33 96 H 04/03/23 09:33 140/74 04/03/23 08:34 100 H 04/03/23 08:34 136/80 04/03/23 08:20 98.2 F 121 H 18 141/87 H 04/03/23 07:48 121 H 141/87 H Coding Level of Care Code None Diagnoses Encounter for induction of labor Z34.90 Gestational diabetes mellitus (GDM) affecting , antepartum O24.419
[2023-04-03] MEDS ORDERED: SODIUM CHLORIDE 0.9% PF INJ 10 ML VIAL ONE (11:05)
[2023-04-03] MEDS ORDERED: ePHEDrine sulfate 50 MG/ML AMP ONE (11:05)
[2023-04-03] MEDS ORDERED: fentaNYL citrate PF 100 MCG/2 ML VIAL ONE (11:05)
[2023-04-03] MEDS ORDERED: LIDOCAINE 2%/EPINEPHRINE 1:200,000 20 ML PF ONE (11:06)
[2023-04-03] MEDS ORDERED: fentANYL 2 MCG/ML BUPIVacaine 0.125%-NSS 100ML BAG ONE (11:06)
[2023-04-03] MEDS ORDERED: BUPIVACAINE 0.25% PF 30 ML VIAL ONE (11:06)
[2023-04-03] MEDS ORDERED: fentANYL 2 MCG/ML BUPIVacaine 0.125%-NSS 100ML BAG EPI PRN (12:00)
[2023-04-03] MEDS ORDERED: BUPIVACAINE 0.25% PF 30 ML VIAL EPI PRN (12:00)
[2023-04-03] MEDS ORDERED: SODIUM CHLORIDE 0.9% PF INJ 10 ML VIAL EPI PRN (12:00)
[2023-04-03] MEDS ORDERED: NALOXONE HCL 1 MG in SODIUM CHLORIDE 0.9% 1,000 ML IV PRN (12:00)
[2023-04-03] MEDS ORDERED: SODIUM CHLORIDE 0.9% PF INJ 10 ML VIAL EPI STA (12:00)
[2023-04-03] MEDS ORDERED: fentaNYL citrate PF 100 MCG/2 ML VIAL EPI STA (12:00)
[2023-04-03] MEDS ORDERED: LIDOCAINE 2%/EPINEPHRINE 1:200,000 20 ML PF EPI STA (12:00)
[2023-04-03] MEDS ORDERED: NALOXONE HCL 0.4 MG/1 ML VIAL/CARP IV PRN (12:00)
[2023-04-03] MEDS ORDERED: LIDOCAINE 2% MPF LOCAL 5 ML VIAL EPI PRN (12:00)
[2023-04-03] MEDS ORDERED: NALBUPHINE HCL 5 MG in SYRINGE 0 ML IV PRN (12:00)
[2023-04-03] MEDS ORDERED: fentaNYL citrate PF 100 MCG/2 ML VIAL EPI PRN (12:00)
[2023-04-03] MEDS ORDERED: ROPIVACAINE 0.5% PF 5 MG/ML 20 ML VIAL EPI PRN (12:00)
[2023-04-03] MEDS ORDERED: ONDANSETRON INJ 2 MG/ML 2 ML VIAL IV PRN (12:00)
[2023-04-03] MEDS ORDERED: diphenhydrAMINE 50 MG/ML VIAL IV PRN (12:00)
[2023-04-03] MEDS ORDERED: ePHEDrine sulfate 50 MG/ML AMP IV PRN (12:00)
--- NOTE | 2023-04-03 12:00 | Anesthesiology Consultation ---
Date of Service April 03, 2023 Assessment & Plan Chart Review Chart Review: Patient NOT seen in Pre Admission Testing and Acceptable Risk for Labor Epidural Consults Requested none ASA ASA2 Proposed Anesthesia Anesthesia Type: Labor Epidural Risk / Benefits Reviewed With: PT / POA / Parent / Guardian, Accepts Plan and Informed Consent Obtained History Height/Weight Height: 5 ft 9 in Weight: 109.769 kg Allergies Allergy/AdvReac Type Severity Reaction Status Date / Time No Known Allergies Allergy Verified 04/02/23 11:46 Medications Home Medications Medication Instructions Recorded Confirmed Last Taken prenat.vits,alexandr,sku-fvxj-vuzdh 1 tab PO DAILY 02/08/21 04/03/23 04/03/23 Accu-Chek Guide Glucose Meter #1 ea 09/24/22 04/02/23 Unknown (blood-glucose meter) Accu-Chek Guide test strips (blood #200 ea 09/24/22 04/02/23 Unknown sugar diagnostic) acetone (urine) test (Ketone Urine #50 ea 09/24/22 04/02/23 Unknown Test strips) lancets (Accu-Chek Fastclix Lancet #200 ea 09/24/22 04/02/23 Unknown Drum) azithromycin 250 mg tablet 250 mg PO DAILY 04/03/23 04/03/23 04/03/23 Active Medications Generic Name Dose Route Start Last Admin Trade Name Freq PRN Reason Stop Dose Admin Lactated Ringer's 1,000 mls @ 125 mls/hr 04/03/23 08:23 04/03/23 11:42 Lr IV 04/05/23 08:22 125 mls/hr .Q8H PRN Infusion L&D Protocol Protocol Oxytocin 30 units in 500 mls @ 1 mls/hr 04/03/23 08:23 04/03/23 09:30 Pitocin 30 Units/Nss IV 04/05/23 08:22 0.06 units/hr .Q24H PRN 1 mls/hr Labor Induction/Augmentation Administration Protocol 0.06 UNITS/HR Past Medical History Medical History (Updated 04/03/23 @ 11:00 by Simona Miller MD, FACOG) Post-dural puncture headache Gestational diabetes mellitus (GDM) affecting , antepartum Depression History of vaginal delivery History of migraine Encounter for care and examination after delivery Normal labor Encounter for pre-operative examination Encounter for anatomic survey Supervision of normal intrauterine in primigravida Exercise / Class Metabolic Activity II 4-5 Yardwork/Stairs/Walk up hill Past Family History Family History (Updated 09/01/22 @ 11:10 by Zaira Tai RN) Mother Heart disease Hypertension Grandmother (Maternal) Colorectal cancer Pancreatic cancer Other Breast cancer Cancer Denies family history of Ovarian cancer Past Surgical History Surgical History S/P wisdom tooth extraction No history of previous surgery Past Anesthesia History No Hx of Anesthesia Complications and No Family Hx of Anesthesia Complications History of PONV No Hx of PONV and No Hx of Motion Sickness Social History Smoking Status: Never smoker Do You Dip or Chew Tobacco: No Hx Alcohol Use: Yes alcohol intake frequency: holidays/special occasions only Hx Substance Use: No Physical Exam Vital Signs Last Vital Signs Temp 36.8 C 04/03/23 08:20 Pulse 81 04/03/23 11:57 Resp 18 04/03/23 08:20 BP 131/68 04/03/23 11:57 Pulse Ox 99 04/03/23 11:54 ENMT Mouth: no dentition abnormality Thyromental Distance: > or= 3.5 Finger Breadths Mallampati Class: II Neck normal visual inspection Respiratory normal respiratory effort Auscultation: lungs clear to auscultation bilaterally Cardiovascular Rate/Rhythm: regular rate and regular rhythm Psychiatric Orientation: alert Testing Laboratory Results 04/03/23 08:33 04/03/23 08:33 Blood Type A Positive 04/03/23 08:33 Antibody Screen NEGATIVE 04/03/23 08:33
[2023-04-03] MEDS ORDERED: NURSING L&D Epidural Breakthrough Pain Update ONE (12:53)
[2023-04-03] MEDS: BUPIVACAINE 0.25% PF 30 ML VIAL EPI STA ×2 (13:09→14:52)
--- NOTE | 2023-04-03 14:17 | Delivery Summary ---
Vaginal Delivery Summary Date of Service April 03, 2023 Vaginal Delivery Summary DIAGNOSES: 1. Johnson intrauterine at 40w3d gestation. 2. Spontaneous onset of labor. 3. Group B Streptococcus Neg. PROCEDURE: Spontaneous vaginal delivery without laceration. SURGEON: Pooja Oliver MD. FOIL SPINNER: None. ESTIMATED BLOOD LOSS: 250 mL. COMPLICATIONS: None. PLACENTA: Spontaneous and intact with a 3-vessel cord. DISPOSITION: Stable to labor and delivery. DESCRIPTION: The patient pushed well and brought the head to in DOA position. The infant's head restituted with R shoulder anterior, and an occult cord prolapse presented alongside the R cheek. With the next maternal push, the shoulder did not deliver. Therefore Aron position was employed, and the patient was encouraged to push again. She did so rapidly and forcefully, such that with no further assistance - not even downward traction on the head as her push was so sudden - the R shoulder promptly delivered under the pubic arch. Of note, however, a pop was heard as the 's R shoulder passed under the pubic arch. The L shoulder immediately followed and the rest of the was allowed to deliver with contraction force and no further active pushing. Completion of delivery was rapid once the shoulder delivered. After the shoulders were delivered, the cord alongside the cheek was visible more fully as a nuchal loop. The infant delivered through this as there was not time to reduce it, and the cord was unwrapped from the after it was fully delivered. The infant was placed on the maternal abdomen. It was vigorous and moving all extremities, including notable grasp motions with both R and L hands, and making respiratory efforts. The cord was doubly clamped by the MD and then cut by the FOB. The placenta delivered spontaneously and was noted to be intact and with a 3VC, though it did have a velamentous insertion, with the PCI about an inch from the placental edge and some vessels traversing the membranes for up to 4" or so before rejoining the placental disk. The cervix, vagina and perineum were examined and were found to be without defect requiring repair. The fundus was firm and lochia minimal immediately after delivery. Patient and FOB were counseled on the perceived pop and my suspicion of possible clavicle or upper arm fracture occurring during delivery. Nursery staff were also informed at the bedside in front of mom and dad. All questions answered to their stated satisfaction. [facility] Vaginal Delivery Charge Vaginal Delivery Codes: 98811 global code for the antepartum, delivery, and post-
[2023-04-03] MEDS ORDERED: bisacodyL 10 MG SUPP PR PRN (14:35)
[2023-04-03] MEDS ORDERED: oxyCODONE/ACETAMINOPHEN 5mg/325mg TAB PO PRN (14:35)
[2023-04-03] MEDS ORDERED: BENZOCAINE 20% SPRY 85 APPLN/85 GM CAN EXT PRN (14:35)
[2023-04-03] MEDS ORDERED: DIPHTHERIA/TETANUS/PERTUSSIS Vaccine (Tdap, Age 7+yrs) 0.5mL SYR/VL IM ONE (14:35)
[2023-04-03] MEDS ORDERED: ACETAMINOPHEN 325 MG TAB PO PRN (14:35)
[2023-04-03] MEDS ORDERED: HYDROCORTISONE ACETATE 25 MG SUPP PR PRN (14:35)
--- NOTE | 2023-04-03 16:15 | Anesthesia Procedure Note ---
Date of Service April 03, 2023 Anesthesia Post Epidural Note Vital Signs Vital Signs: Temp Pulse Resp BP Pulse Ox 36.8 C 82 18 116/64 97 04/03/23 08:20 04/03/23 16:00 04/03/23 15:00 04/03/23 16:00 04/03/23 14:01 Pain Intensity Lower Medial Abdomen: Pain Intensity: 0 Notes Mental Status: alert / awake / arousable Nausea / Vomiting: adequately controlled Pain: adequately controlled Airway Patency, RR, SpO2: stable & adequate BP & HR: stable & adequate Hydration State: stable & adequate Neuraxial Anesthesia: was administered and sensory block is resolving Anesthetic Complications: no major complications apparent and Pt Satisfied with anesthetic care Epidural: Removed without complications and With tip intact
[2023-04-03] MEDS: DOCUSATE SODIUM 100 MG CAP PO SCH (21:00)
[2023-04-03] MEDS: IBUPROFEN 600 MG TAB PO PRN (21:24)
--- NOTE | 2023-04-04 04:20 | Obstetrical Progress Note ---
Date of Service <Cale Hernandez DO - Last Filed: 04/04/23 06:07> April 04, 2023 Assessment & Plan <Cale Hernandez DO - Last Filed: 04/04/23 06:07> (1) (spontaneous vaginal delivery): Plan 33 y/o female , PPD#1: Eating well, voiding well, ambulating well Vitals reviewed, WNL Pain well controlled with Motrin Routine post care - OOB, ambulation, diet progression as tolerated Will have 6 week follow up with Dr. Oliver <Pooja Oliver MD - Last Filed: 04/04/23 07:08> (1) (spontaneous vaginal delivery): Subjective <Cale Hernandez - Last Filed: 04/04/23 06:07> Ambulation: ambulating normally Voiding: no voiding problems Passing Gas:: No Diet Tolerance:: regular diet Lochia:: Moderate Feeding Type:: breast feeding Pain well controlled with Motrin Review of Systems -Denies fever or chills -Denies dyspnea, chest pain, or palpitations -Denies dysuria -Denies headache or changes in vision Physical Exam <Cale Hernandez - Last Filed: 04/04/23 06:07> General: Alert and oriented. No acute distress Cardiac: Regular rate and rhythm, no murmurs appreciated Respiratory: Lungs clear to auscultation bilaterally, No increased work of breathing Abdominal: Soft, non-tender, non-distended. Bowel sounds present. Uterus: Uterine fundus firm, palpable below umbilicus Extremities: No lower extremity edema, calves non-tender bilaterally Results & Data <Cale Hernandez - Last Filed: 04/04/23 06:07> Vital Signs (Past 12 Hours) Vital Signs Temp Pulse Resp BP Pulse Ox O2 Del Method 04/04/23 03:47 36.5 C 77 18 125/85 94 Room Air 04/03/23 22:47 36.6 C 84 18 122/76 98 Room Air 04/03/23 19:39 36.5 C 88 18 124/79 97 Room Air 04/03/23 17:25 36.9 C 76 18 129/84 Room Air Supervising Physician <Pooja Oliver MD - Last Filed: 04/04/23 07:08> Co-Signing Physician Notes I was present with Dr. Hernandez during the history and exam. I discussed the case with the resident and agree with the findings and plan as documented in the note. Any exceptions or clarifications are listed here: [None] Resident Activity Tracking <Cale Hernandez DO - Last Filed: 04/04/23 06:07> Resident Involvement: Resident Care Provided Care Provided: OB Delivery
[2023-04-04] MEDS: DOCUSATE SODIUM 100 MG CAP PO SCH (07:34)
[2023-04-04 07:55] LABS: Hematocrit (blood only) 33.3 % (37.0-47.0); Hemoglobin 11.4 g/dl (12.0-16.0); Mean Corpuscular Hgb Conc 34.2 g/dL (32.0-36.0); Mean Corpuscular Volume 90.5 fL (80.0-100.0); Mean Platelet Volume 10.1 fL (9.4-12.4); Platelet Count 213 K/uL (130-400); RDW Coefficient of Variation 12.7 % (11.5-14.5); RDW Standard Deviation 42.2 fL (36.4-46.3); Red Blood Count 3.68 M/uL (4.20-5.40); White Blood Count 10.39 K/ul (4.8-10.8)
[2023-04-04] MEDS ORDERED: PRENATAL VITAMIN 1 TAB PO SCH (08:00)
[2023-04-04] MEDS ORDERED: AZITHROMYCIN 250 MG TAB PO SCH (09:00)
[2023-04-04] MEDS: IBUPROFEN 600 MG TAB PO PRN (13:30)
[2023-04-04] MEDS ORDERED: bisacodyL 5 MG TABEC PO SCH (20:00)
== END 2023-04-04 15:20 | disposition home or self-care (01) | DRG 807 ==
LOC: 4S1 07:37 → 4E2 16:50